=== PATIENT | female | born 1980 | race Caucasian/White ===

== ENCOUNTER 2020-12-20 09:15 | Emergency (ER) | payer MEDICAID ==
[~2020-12-20] VITALS: Ht 157.5 cm; Wt 64.5 kg
[~2020-12-20 09:15] MED LIST: IBUP-1623 PO; OXYC1TAB14 PO
[2020-12-20 09:20] VITALS: BP 123/73
[2020-12-20] MEDS ORDERED: PENICILLIN VK 500MG TABLET ONE (09:41)
[2020-12-20] MEDS ORDERED: HYDROcodone/APAP 5/325 TABLET ONE (09:42)
--- NOTE | 2020-12-20 09:51 | NUR ---
onshore diver completed, pt medicated, and d/c instructions given at this time. Pt walked to d/c desk with steady gait present. Denies questions about d/c instructions.
[2020-12-20] MEDS ORDERED: PENICILLIN VK 500MG TABLET PO ONE (10:00)
== END 2020-12-20 09:56 | disposition home or self-care (01) ==
LOC: ED 09:50
DX: K02.9 Dental caries, unspecified (principal); R51.9 Headache, unspecified; F17.200 Nicotine dependence, unspecified, uncomplicated
CPT/HCPCS: 99283

== ENCOUNTER 2021-02-21 19:54 | Emergency (ER) | payer MEDICAID ==
[~2021-02-21] VITALS: Ht 162.6 cm; Wt 62.0 kg
--- NOTE | 2021-02-21 20:31 | NUR ---
signals intelligence superintendent: Pt ambulatory to room from lobby at this time.
[2021-02-21 20:34] LABS: BASOPHILS % (AUTO) 0 % (0-1); EOSINOPHILS % (AUTO) 1 % (1-7); LYMPHOCYTES % (AUTO) 12 % (22-44); MEAN CORPUSCULAR HEMOGLOBIN 32.8 pg (27.0-34.8); MEAN CORPUSCULAR HGB CONC 34.3 g/dL (32.4-35.8); MEAN PLATELET VOLUME 9.5 fL (7.4-10.4); MONOCYTES % (AUTO) 5 % (2-9); NEUTROPHILS % (AUTO) 82 % (42-75); PLATELET COUNT 186 x10^3/uL (130-400); RED CELL DISTRIBUTION WIDTH 13.2 % (9.6-15.2)
[2021-02-21 20:40] LABS: ALANINE AMINOTRANSFERASE 203 U/L (12-78); ALBUMIN 3.8 g/dL (3.4-5.0); ANION GAP 3 mmol/L (5-15); CALCIUM 8.6 mg/dL (8.5-10.1); CHLORIDE 106 mmol/L (98-107); CREATININE 0.65 mg/dL (0.55-1.02)
--- NOTE | 2021-02-21 20:42 | NUR ---
PT PRESENTS TO ER FOR FACIAL SWELLING ON THE RIGHT SIDE ASSOCIATED WITH JAW PAIN RELATED TO DENTAL ISSUE, PT STATES SHE FEELS HER HEART IS BEATING FAST BUT SPRING SETTER SHOWS 67 HEART RATE, PT HAS SOME STERNAL PAIN IN HER CHEST WELL, ALL NEEDS IN REACH, CALL LIHGT IN REACH, NAD AT THIS TIME
[2021-02-21 20:44] LABS: ALKALINE PHOSPHATASE 102 U/L (45-117); BILIRUBIN,TOTAL 0.5 mg/dL (0.2-1.0); TOTAL PROTEIN 7.1 g/dL (6.4-8.2); TROPONIN I < 0.015 ng/mL (0.000-0.045)
[2021-02-21 20:45] VITALS: BP 129/84
[2021-02-21] MEDS ORDERED: MAALOX/HYOSCYAMINE/LIDOCAINE 45 ML BTL PO ONE (22:30)
[2021-02-21] MEDS ORDERED: FAMOTIDINE 20 MG TABLET PO ONE (22:30)
[2021-02-21] MEDS ORDERED: FAMOTIDINE 20 MG TABLET ONE (22:36)
[2021-02-21] MEDS ORDERED: MAALOX/HYOSCYAMINE/LIDOCAINE 45 ML BTL ONE (22:36)
--- NOTE | 2021-02-21 22:59 | NUR ---
PT ASLEEP IN BED, ALL NEEDS IN REACH, CALL LIGHT IN REACH, NAD AT THIS TIME
== END 2021-02-21 23:39 | disposition home or self-care (01) ==
LOC: ED 21:00
DX: R07.2 Precordial pain (principal); K04.7 Periapical abscess without sinus; K02.9 Dental caries, unspecified; K08.89 Other specified disorders of teeth and supporting structures; R94.5 Abnormal results of liver function studies
CPT/HCPCS: 36415; 71045; 80053; 83690; 84484; 85025; 93005; 99285